=== PATIENT | female | born 1925 | race Caucasian/White ===

== ENCOUNTER 2016-09-12 08:48 | Emergency (ER) | payer MEDICARE ==
[2016-09-12] MEDS ORDERED: NS 0.9% 1000 ML* 1,000 ML IV ONE (09:58)
--- NOTE | 2016-09-12 10:42 | RAD ---
Indication: Fell and struck head. Comparison: August 13, 2015 CT. Technique: Noncontrast CT vertex of skull through foramen magnum. Report: Moderate prominence of the cerebral sulci and cerebellar fissures reflecting atrophy. Patent basal cisterns. 3 mm lacunar infarct at the interface of the LEFT thalamus and posterior limb of the internal capsule without change. Negative for ibarra matter white matter obscuration, intra or extra-axial hemorrhage, or mass effect. Unremarkable visualized orbital contents. No fracture or suspicious lesion of the calvarium or skull base. Negative for scalp hematoma. IMPRESSION: 1. No evidence for traumatic brain injury or acute intracranial process. 2. Involutional change and chronic small lacunar infarct at the LEFT thalamus internal capsule or interface.
[2016-09-12 10:56] LABS: Hematocrit 37 % (35-47); Mean Corpuscular HGB Conc 33 g/dl (31-36); Mean Corpuscular Hemoglobin 29 pg (27-31); Mean Corpuscular Volume 89 fL (80-97); Mean Platelet Volume 9 um3 (7.4-10.4); Red Blood Count 4.12 10^6/ul (4.0-5.4); Red Cell Distribution Width 13 % (10.5-15); White Blood Count 12.9 10^3/ul (3.5-10.8)
--- NOTE | 2016-09-12 10:58 | RAD ---
INDICATION: Head injury, trauma. COMPARISON: Comparison is made with a prior CT of the cervical spine from August 13, 2015. TECHNIQUE: Contiguous axial sections were obtained from the skull base through the C7 vertebra. Images were reconstructed in the sagittal and coronal planes. FINDINGS: The vertebra are in normal alignment. No prevertebral soft tissue swelling or fracture is seen. There is moderate to severe disc space narrowing and mild to moderate uncinate process spurring present at the C3-C4, C4-C5, C5-C6 and C6-C7 levels. These findings cause mild spinal canal narrowing at those levels and mild to moderate bilateral neural foraminal narrowing. IMPRESSION: 1. NO EVIDENCE FOR FRACTURE OR SUBLUXATION. 2. MODERATE TO SEVERE CERVICAL SPONDYLOSIS.
--- NOTE | 2016-09-12 11:05 | RAD ---
INDICATION: Trauma, found on the floor. COMPARISON: Comparison is made with a prior CT of the lumbar spine from August 13, 2015. TECHNIQUE: Contiguous axial sections were obtained beginning above the L1 vertebra and continuing through the L5-S1 disc space. Images were reconstructed in the sagittal and coronal planes. FINDINGS: There is a [id number] lumbar scoliosis convex toward the left side. In addition there is mild anterior subluxation of L4 relative to L5 of approximately 4 mm which is unchanged from the prior exam consistent with grade 1 anterior spondylolisthesis. No fracture is seen. At the L1-L2 level there is a xdkr-ma-emqliixm broad-based disc bulge which causes mild spinal canal narrowing and mild to moderate bilateral neural foraminal narrowing. At the L2-L3 level there is posterior endplate spurring associated with a mild broad-based disc bulge and mild hypertrophic changes within the facet joints which causes mild spinal canal narrowing and mild bilateral neural foraminal narrowing. At the L3-L4 level there is a dmrk-tq-gvjvzuwx broad-based disc bulge and moderate hypertrophic changes within the facet joints which causes moderate spinal canal narrowing and mild to moderate bilateral neural foraminal narrowing. At the L4-L5 level there is a moderate broad-based disc bulge and moderate hypertrophic changes within the facet joints which causes moderate to severe spinal canal narrowing and moderate bilateral neural foraminal narrowing. At the L5-S1 level there is a minimal broad-based disc bulge and moderate hypertrophic changes within the facet joints. No significant spinal canal narrowing is present. There is mild bilateral neural foraminal narrowing. IMPRESSION: 1. NO EVIDENCE FOR FRACTURE. 2. GRADE 1 ANTERIOR SPONDYLOLISTHESIS AT THE L4-L5 LEVEL, UNCHANGED. 3. MODERATE TO SEVERE LUMBAR SPONDYLOSIS.
--- NOTE | 2016-09-12 11:06 | RAD ---
INDICATION: Fall. Back pain COMPARISON: CT thoracic spine August 13, 2015 TECHNIQUE: Noncontrast axial source images was performed from the thoracic inlet to the level the hemidiaphragms. Coronal and and sagittal reformatted images were generated. FINDINGS: Vertebrae: There is no fracture or acute focal bony lesion. There is a remote superior plate compression deformity of T12 with minor bony retropulsion. This is not associated with canal compromise. This was evident previously. There is an old right T8 rib fracture. Alignment: There is moderate kyphosis. There is minor dextroscoliosis Central Canal: There are no significant CT abnormalities of the central canal or foramina. MR imaging is a more sensitive method to evaluate the canal and foramina. Intervertebral disc spaces: The disc spaces are maintained. Soft tissues: There are no paravertebral soft tissue abnormalities. IMPRESSION: OLD T11 AND RIGHT T8 RIB FRACTURES. NO ACUTE FINDINGS.
[2016-09-12 11:11] LABS: BUN/Creatinine Ratio 22.7 (8-20); Calcium 9.7 mg/dL (8.6-10.3); EGFR African American 77.8 (>60); EGFR Non-African American 60.5 (>60); Globulin 4.1 g/dL (2-4); Potassium 4.1 mmol/L (3.5-5.0); Total Bilirubin 0.4 mg/dL (0.2-1.0); Total Protein 8.1 g/dL (6.4-8.9)
[2016-09-12 11:23] LABS: Urine Bacteria Absent (Absent); Urine Bilirubin Negative (Negative); Urine Glucose Negative (Negative); Urine Nitrite Positive (Negative)
--- NOTE | 2016-09-12 15:43 | RAD ---
INDICATION: Right hip pain after fall COMPARISON: None TECHNIQUE: An AP supine view of the pelvis and AP views of the hip in neutral and abducted position were obtained FINDINGS: Bones: There are no acute bony findings. Joint spaces: There is moderate symmetric narrowing about both hip joint spaces. The joint spaces are preserved. SI joints/symphysis: The SI joints and symphysis are intact. Other: None IMPRESSION: MODERATE SYMMETRIC NARROWING ABOUT BOTH HIP JOINT SPACES. NO ACUTE BONY FINDINGS.
[2016-09-12 16:26] VITALS: BP 158/74
--- NOTE | 2016-09-12 18:30 | ED ---
Simba Drake Benjamin, scribed for Hunter Bond MD on 09/12/16 at 0955 . Neck Pain - HPI Summary HPI Summary: 89yo female who fell yesterday night around 11pm, unattended and unwitnessed on the floor until she was found by staff this morning. Denies head injury or LOC. Pt reports neck stiffness and back pain. Pt states that she can't sit up since the fall. Hx of TIA. - History of Current Complaint Chief Complaint: EDNeckComplaint Stated Complaint: FALL Time Seen by Provider: 09/12/16 09:30 Hx Obtained From: Patient Onset/Duration Of Injury/Symptoms: Days - 1 day ago Mechanism Of Injury: Other - fall Timing: Constant Onset/Duration: Sudden Onset, Started days ago - 1 day ago, Still Present Severity Initially: Mild Severity Currently: Mild Pain Intensity: 5 Pain Scale Used: 0-10 Numeric Location: Discrete At: - neck Character: Stiff Aggravating Factors: Movement Alleviating Factors: Nothing Associated Signs & Symptoms: Positive: Negative - Allergies/Home Medications Allergies/Adverse Reactions: Allergies Allergy/AdvReac Type Severity Reaction Status Date / Time No Known Allergies Allergy Verified 09/12/16 09:27 Home Medications: Home Medications Magnesium Hydroxide LIQ* [Milk of Magnesia LIQ*] 30 ml PO BEDTIME PRN 09/12/16 [ History Confirmed 09/12/16] Senna TAB* [Senokot TAB*] 1 tab PO DAILY PRN 09/12/16 [History Confirmed ] PMH/Surg Hx/FS Hx/Imm Hx Endocrine/Hematology History: Denies: Hx Diabetes Cardiovascular History: Reports: Hx Hypertension - TREATED WITH MEDICATION, Hx Valvular Heart Disease - Mitral valve prolapse Denies: Hx Pacemaker/ICD Sensory History: Reports: Hx Cataracts, Hx Contacts or Glasses Denies: Hx Hearing Aid Opthamlomology History: Reports: Hx Cataracts, Hx Contacts or Glasses Neurological History: Reports: Hx Transient Ischemic Attacks (TIA) Denies: Other Neuro Impairments/Disorders Psychiatric History: Reports: Hx Depression Denies: Hx Panic Disorder - Cancer History Cancer Type, Location and Year: UROTHELIAL CARCINOMA - Surgical History Surgery Procedure, Year, and Place: TONSILS. HYSTERECTOMY Infectious Disease History: No Infectious Disease History: Reports: Hx Shingles Denies: Traveled Outside the [place] in Last 30 Days - Family History Known Family History: Positive: Unknown Negative: Cardiac Disease Family History: Per EMR, both parents of old age at the age of 90 and 102. - Social History Occupation: Disabled Lives: At [facility] Alcohol Use: None Hx Substance Use: No Substance Use Type: Reports: None Hx Tobacco Use: Yes Smoking Status (MU): Former Smoker Review of Systems Constitutional: Negative Eyes: Negative ENT: Negative Cardiovascular: Negative Respiratory: Negative Gastrointestinal: Negative Genitourinary: Negative Positive: Myalgia - back pain, neck stiffness Skin: Negative Neurological: Negative Psychological: Normal All Other Systems Reviewed And Are Negative: Yes Physical Exam - Summary Physical Exam Summary: The patient is well-nourished in no acute distress and in no acute pain. The skin is warm and dry and skin color reflects adequate perfusion. No raccoons sign, no polanco signs. No signs of head trauma. HEENT: The head is normocephalic and atraumatic. The pupils are equal and reactive. The conjunctivae are clear and without drainage. Nares are patent and without drainage. Mouth reveals moist mucous membranes and the throat is without erythema and exudate. The external ears are intact. The ear canals are patent and without drainage. The tympanic membranes are intact. Neck is supple with full range of motion and non-tender. There are no carotid bruits. There is no neck vein distension. Respiratory: Chest is non-tender. Lungs are clear to auscultation and breath sounds are symmetrical and equal. Cardiovascular: Hear is regular rate and rhythm. There is no murmur or rub auscultated. There is no peripheral edema and pulses are symmetrical and equal. Abdomen: The abdomen is soft and non-tender. There are normal bowel sounds heard in all four quadrants and there is no organomegaly palpated. Musculoskeletal: There is no back pain noted. Extremities are non-tender with full range of motion. There is good capillary refill. There is no peripheral edema or calf tenderness elicited. Pt reports back pain but unable to locate. No reproducible neck pain, but pt reports neck stiffness. Negative NATHANAEL test. vesicle on left malleolus process. Neurological: Patient is alert but slightly confused.. The patient has symmetrical motor strength in all four extremities. Cranial nerves are grossly intact. Deep tendon reflexes are symmetrical and equal in all four extremities Left sided facial droop is noticed. Psychiatric: The patient has an appropriate affect and does not exhibit any anxiety or depression. Triage Information Reviewed: Yes Vital Signs On Initial Exam: Initial Vitals Temp Pulse Resp Pulse Ox 98.7 F 80 16 96 09/12/16 08:58 09/12/16 08:58 09/12/16 08:58 09/12/16 08:58 Vital Signs Reviewed: Yes Diagnostics - Vital Signs Vital Signs Temp Pulse Resp BP Pulse Ox 09/12/16 09:05 57 87 09/12/16 09:04 98.7 F 83 16 154/56 96 09/12/16 08:58 98.7 F 80 16 96 - Laboratory Lab Results: Lab Results 09/12/16 09/12/16 09/12/16 Range/Units 09:03 10:46 10:46 WBC 12.9 H (3.5-10.8) 10^3/ul RBC 4.12 (4.0-5.4) 10^6/ul Hgb 12.0 (12.0-16.0) g/dl Hct 37 (35-47) % MCV 89 (80-97) fL MCH 29 (27-31) pg MCHC 33 (31-36) g/dl RDW 13 (10.5-15) % Plt Count 341 (150-450) 10^3/ul MPV 9 (7.4-10.4) um3 Neut % (Auto) 91.6 H (38-83) % Lymph % (Auto) 4.8 L (25-47) % [place] % (Auto) 3.3 (1-9) % Eos % (Auto) 0 (0-6) % Baso % (Auto) 0.3 (0-2) % Absolute Neuts (auto) 11.8 H (1.5-7.7) 10^3/ul Absolute Lymphs (auto) 0.6 L (1.0-4.8) 10^3/ul Absolute Monos (auto) 0.4 (0-0.8) 10^3/ul Absolute Eos (auto) 0 (0-0.6) 10^3/ul Absolute Basos (auto) 0 (0-0.2) 10^3/ul Absolute Nucleated RBC 0 10^3/ul Nucleated RBC % 0 Sodium 137 (133-145) mmol/L Potassium 4.1 (3.5-5.0) mmol/L Chloride 102 (101-111) mmol/L Carbon Dioxide 27 (22-32) mmol/L Anion Gap 8 (2-11) mmol/L BUN 20 (6-24) mg/dL Creatinine 0.88 (0.51-0.95) mg/dL Est GFR ( Amer) 77.8 (>60) Est GFR (Non-Af Amer) 60.5 (>60) BUN/Creatinine Ratio 22.7 H (8-20) Glucose 130 H (70-100) mg/dL Lactic Acid (0.5-2.0) mmol/L Calcium 9.7 (8.6-10.3) mg/dL Total Bilirubin 0.40 (0.2-1.0) mg/dL AST 24 (13-39) U/L ALT 13 (7-52) U/L Alkaline Phosphatase 103 (34-104) U/L Total Creatine Kinase 560 H (10-223) U/L Total Protein 8.1 (6.4-8.9) g/dL Albumin 4.0 (3.2-5.2) g/dL Globulin 4.1 H (2-4) g/dL Albumin/Globulin Ratio 1.0 (1-3) Urine Color Yellow Urine Appearance Cloudy Urine pH 5.0 (5-9) Ur Specific [place] 1.021 (1.010-1.030) Urine Protein 2+(100 mg/dl) H (Negative) Urine Ketones Trace H (Negative) Urine Blood 3+ H (Negative) Urine Nitrate Positive H (Negative) Urine Bilirubin Negative (Negative) Urine Urobilinogen Negative (Negative) Ur Leukocyte Esterase 1+ H (Negative) Urine WBC (Auto) 2+(11-20/hpf) H (Absent) Urine RBC (Auto) 3+(>10/hpf) H (Absent) Ur Squamous Epith Cells Present H (Absent) Urine Bacteria Absent (Absent) Hyaline Casts Present H (Absent) Urine Glucose Negative (Negative) Urine Ascorbic Acid * H (Negative) 09/12/ Range/Units 10:46 WBC (3.5-10.8) 10^3/ul RBC (4.0-5.4) 10^6/ul Hgb (12.0-16.0) g/dl Hct (35-47) % MCV (80-97) fL MCH (27-31) pg MCHC (31-36) g/dl RDW (10.5-15) % Plt Count (150-450) 10^3/ul MPV (7.4-10.4) um3 Neut % (Auto) (38-83) % Lymph % (Auto) (25-47) % [place] % (Auto) (1-9) % Eos % (Auto) (0-6) % Baso % (Auto) (0-2) % Absolute Neuts (auto) (1.5-7.7) 10^3/ul Absolute Lymphs (auto) (1.0-4.8) 10^3/ul Absolute Monos (auto) (0-0.8) 10^3/ul Absolute Eos (auto) (0-0.6) 10^3/ul Absolute Basos (auto) (0-0.2) 10^3/ul Absolute Nucleated RBC 10^3/ul Nucleated RBC % Sodium (133-145) mmol/L Potassium (3.5-5.0) mmol/L Chloride (101-111) mmol/L Carbon Dioxide (22-32) mmol/L Anion Gap (2-11) mmol/L BUN (6-24) mg/dL Creatinine (0.51-0.95) mg/dL Est GFR ( Amer) (>60) Est GFR (Non-Af Amer) (>60) BUN/Creatinine Ratio (8-20) Glucose (70-100) mg/dL Lactic Acid 1.7 (0.5-2.0) mmol/L Calcium (8.6-10.3) mg/dL Total Bilirubin (0.2-1.0) mg/dL AST (13-39) U/L ALT (7-52) U/L Alkaline Phosphatase (34-104) U/L Total Creatine Kinase (10-223) U/L Total Protein (6.4-8.9) g/dL Albumin (3.2-5.2) g/dL Globulin (2-4) g/dL Albumin/Globulin Ratio (1-3) Urine Color Urine Appearance Urine pH (5-9) Ur Specific [place] (1.010-1.030) Urine Protein (Negative) Urine Ketones (Negative) Urine Blood (Negative) Urine Nitrate (Negative) Urine Bilirubin (Negative) Urine Urobilinogen (Negative) Ur Leukocyte Esterase (Negative) Urine WBC (Auto) (Absent) Urine RBC (Auto) (Absent) Ur Squamous Epith Cells (Absent) Urine Bacteria (Absent) Hyaline Casts (Absent) Urine Glucose (Negative) Urine Ascorbic Acid (Negative) Result Diagrams: 09/12/16 10:46 09/12/16 10:46 Lab Statement: Any lab studies that have been ordered have been reviewed, and results considered in the medical decision making process. - Radiology Hip XR Xray Interpretation: No Acute Changes Radiology Interpretation Completed By: Radiologist - CT CT T spine CT Interpretation: No Acute Changes - IMPRESSION: OLD T11 AND RIGHT T8 RIB FRACTURES. NO ACUTE FINDINGS. CT Interpretation Completed By: Radiologist CT L spine CT Interpretation: No Acute Changes - IMPRESSION: 1. NO EVIDENCE FOR FRACTURE. 2. GRADE 1 ANTERIOR SPONDYLOLISTHESIS AT THE L4-L5 LEVEL, UNCHANGED. 3. MODERATE TO SEVERE LUMBAR SPONDYLOSIS. CT Interpretation Completed By: Radiologist CT C spine CT Interpretation: No Acute Changes - IMPRESSION: 1. NO EVIDENCE FOR FRACTURE. 2. GRADE 1 ANTERIOR SPONDYLOLISTHESIS AT THE L4-L5 LEVEL, UNCHANGED. 3. MODERATE TO SEVERE LUMBAR SPONDYLOSIS. CT Interpretation Completed By: Radiologist CT Brain CT Interpretation: No Acute Changes - IMPRESSION: 1. No evidence for traumatic brain injury or acute intracranial process. 2. Involutional change and chronic small lacunar infarct at the LEFT thalamus internal capsule or interface. CT Interpretation Completed By: Radiologist Re-Evaluation - Re-Evaluation First Eval Re-Evaluation Time: 14:08 Comment: reviewed lab and imaging results with the pt, discussed follow up plan. Second Eval Re-Evaluation Time: 14:52 Comment: Ecchimosis behind the Right hip, but negative NATHANAEL's test. Will order Hip X-Ray Neck Course/Dx - Diagnoses Differential Dx/HQI/PQRI: Positive: Arthritis, Cervical Fracture, Intracranial Bleed, Sprain, Strain, Other - hip fracture, concussion, uti Provider Diagnoses: UTI (urinary tract infection), Concussion, Arthritis Discharge - Discharge Plan Condition: Stable Disposition: HOME Prescriptions: Ciprofloxacin TAB* [Cipro 500 MG TAB*] 500 mg PO BID #20 tab Patient Education Materials: Ciprofloxacin (By mouth), Concussion (ED), Arthritis (ED), Urinary Traction Infection in Older Adults (ED) Referrals: Christina Reyes MD [Primary Care Provider] - The documentation as recorded by the scribeSimba Benjamin accurately reflects the service I personally performed and the decisions made by me, Hunter Bond MD.
== END 2016-09-12 16:20 | disposition home or self-care (01) ==
LOC: ED 08:48
DX: N39.0 Urinary tract infection, site not specified (principal); S06.0X0A Concussion without loss of consciousness, initial encounter; M19.90 Unspecified osteoarthritis, unspecified site; W19.XXXA Unspecified fall, initial encounter; Y93.9 Activity, unspecified; Y92.9 Unspecified place or not applicable
CPT/HCPCS: 36415; 70450; 72125; 72128; 72131; 80053; 81003; 81015; 82550; 83605; 85025; 87086; 99284

== ENCOUNTER 2016-09-12 20:38 | Inpatient (IN) | payer MEDICARE ==
--- NOTE | 2016-09-12 21:18 | HP ---
H&P (Free Text) History and Physical: PCP: Em Reyes MD Date/Time of Evaluation: 09/12/2016 2105 CC: generalized weakness HPI: Mrs Prather is a pleasant 89YO female resident of [facility] evaluated in [facility] earlier today for generalized weakness and fall. Radiologic work up was negative and she was returned to [facility] where she again fell and could not get up prompting return visit to [facility]. Labs from her earlier visit were notable for WBCs 12k 91% neutrophils, & total CK of 560. She does admit to urinary urgency and frequency, but no F/C, abdominal/back pain, or other issues. PMedHx TIA CAD HTN HX bladder CA frequent UTIs Ambulatory Orders Nursing to reconcile. PARoxetine HCL TAB* [Paxil TAB*] 10 mg PO DAILY 04/15/15 Acetaminophen TAB* [Tylenol TAB*] 650 mg PO BID 05/10/15 Aspirin Low Dose CHEW TAB* [Aspirin Low Dose TAB*] 81 mg PO DAILY 05/10/15 Cholecalciferol [Vitamin D3] 50,000 unit PO MONTHLY 03/27/16 Docusate Sodium [Colace] 100 mg PO DAILY 03/27/16 Flonase NASAL SPRAY 50MCG* 1 spray INH DAILY 03/27/16 amLODIPine TAB* [Norvasc TAB*] 1.5 tab PO DAILY 03/27/16 Ciprofloxacin TAB* [Cipro 500 MG TAB*] 500 mg PO BID #20 tab 09/12/16 Magnesium Hydroxide LIQ* [Milk of Magnesia LIQ*] 30 ml PO BEDTIME PRN 09/12/16 Senna TAB* [Senokot TAB*] 1 tab PO DAILY PRN 09/12/16 Allergies No Known Allergies Allergy (Verified 09/12/16 09:27) PSurgHx SocHx: no tobacco, minimal alcohol, no recreational drugs; resides at [facility]; uses a walker for ambulation; full code status FamHx: Mother & Father passed of 'old age'. ROS: as above, otherwise reviewed and all were negative Constitutional: NAD, normally developed, well-nourished elderly white female vitals: Vital Signs Temp 38.1 C 09/12/16 21:00 Pulse 71 09/12/16 21:15 Resp 16 09/12/16 21:00 BP 134/55 09/12/16 21:15 Pulse Ox 95 09/12/16 21:15 Intake & Output 09/11/16 09/12/16 09/12/16 23:59 11:59 23:59 Weight 60.781 kg HEENM: atraumatic; sclera/conjunctiva: non-icteric/clear; hearing: clinically intact; oropharynx: clear, mucosa tacky Neck: soft tissue: non-tender; thyroid: normal Pulmonary: clear to auscultation bilaterally, good aeration, no accessory muscle use CV: RR/RR, normal S1S2, no carotid bruit, no jugular venous distention, 1+ B DP/ PT, no edema Abdominal: soft, non-distended, non-tender, no rebound/guarding/rigidity, normoactive bowel sounds, no hepatosplenomegaly or masses, no costovertebral angle tenderness Musculoskeletal: general: grossly intact; gait: unstable Integumental: L cheek scar; otherwise normal appearance and texture Psychiatric orientation: AA&O to PPS affect: pleasant mood: cooperative eye contact: good content: reliable responses: timely insight: fair Testing: reviewed from earlier ED visit ECG, personally reviewed: NSR rate 71, no ischemia CXR, personally reviewed: IMPRESSION: No active cardiopulmonary disease. XRY pelvis/2v hip: IMPRESSION: MODERATE SYMMETRIC NARROWING ABOUT BOTH HIP JOINT SPACES. NO ACUTE BONY CT T-spine: IMPRESSION: OLD T11 AND RIGHT T8 RIB FRACTURES. NO ACUTE FINDINGS. CT L-spine: IMPRESSION: 1. NO EVIDENCE FOR FRACTURE. 2. GRADE 1 ANTERIOR SPONDYLOLISTHESIS AT THE L4-L5 LEVEL, UNCHANGED. 3. MODERATE TO SEVERE LUMBAR SPONDYLOSIS. CT C-spine: IMPRESSION: 1. NO EVIDENCE FOR FRACTURE OR SUBLUXATION. 2. MODERATE TO SEVERE CERVICAL SPONDYLOSIS. CT brain WO: IMPRESSION: 1. No evidence for traumatic brain injury or acute intracranial process. 2. Involutional change and chronic small lacunar infarct at the LEFT thalamus internal capsule or interface. Impression: 89F HX CVA presents with UTI, generalized weakness, fatigue, & increased falls DIAGNOSIS & PLAN Primary UTI w/ 2nd generalized weakness/fatigue & increased falls : IV ceftriaxone : gentle IVFs : urine CX : supportive care gait abnormality : PT evaluation Secondary HX TIA : continue aspirin CAD : continue aspirin HTN : continue amlodipine once reconciled HX bladder CA : no acute issues Admission Rational: observation for UTI to initiate ABX DVTp: heparin SQ & SCDs Code Status: full HCP: daughter, Chelsie Strickland
--- NOTE | 2016-09-12 21:36 | ED ---
Mary Drake Salem, scribed for Tim Sharma MD on 09/12/16 at 2127 . Adult Trauma - HPI Summary HPI Summary: Patient is a 89 y/o female who presents to the ED per EMS s/p a fall this evening. Pt was in the ED earlier today for similar compliant. She states that she fell using her walker and reports general weakness and unsteady gait at baseline. Pt is under assisted living care currently. - History of Current Complaint Chief Complaint: EDWeakness Stated Complaint: FALL/WEAKNESS Time Seen by Provider: 09/12/16 20:57 Hx Obtained From: Patient, EMS Mechanism of Injury: Fall Ambulatory at the Scene: Yes Onset Severity: Moderate Current Severity: Moderate Pain Intensity: 0 Pain Scale Used: 0-10 Numeric Aggravating Factor(s): Nothing Alleviating Factor(s): Nothing Associated Signs & Symptoms: Positive: Negative - Additional Pertinent History Primary Care Physician: KENRICK - Allergy/Home Medications Allergies/Adverse Reactions: Allergies Allergy/AdvReac Type Severity Reaction Status Date / Time No Known Allergies Allergy Verified 09/12/16 09:27 PMH/Surg Hx/FS Hx/Imm Hx Endocrine/Hematology History: Denies: Hx Diabetes Cardiovascular History: Reports: Hx Hypertension - TREATED WITH MEDICATION, Hx Valvular Heart Disease - Mitral valve prolapse Denies: Hx Pacemaker/ICD Sensory History: Reports: Hx Cataracts, Hx Contacts or Glasses Denies: Hx Hearing Aid Opthamlomology History: Reports: Hx Cataracts, Hx Contacts or Glasses Neurological History: Reports: Hx Transient Ischemic Attacks (TIA) Denies: Other Neuro Impairments/Disorders Psychiatric History: Reports: Hx Depression Denies: Hx Panic Disorder - Cancer History Cancer Type, Location and Year: UROTHELIAL CARCINOMA - Surgical History Surgery Procedure, Year, and Place: TONSILS. HYSTERECTOMY Infectious Disease History: No Infectious Disease History: Reports: Hx Shingles Denies: Traveled Outside the [place] in Last 30 Days - Family History Known Family History: Negative: Cardiac Disease Family History: Per EMR, both parents of old age at the age of 90 and 102. - Social History Alcohol Use: None Hx Substance Use: No Substance Use Type: Reports: None Hx Tobacco Use: Yes Smoking Status (MU): Former Smoker Review of Systems Positive: Fever - Mild fever. Positive: Weakness - General. Unsteady gait. All Other Systems Reviewed And Are Negative: Yes Physical Exam Triage Information Reviewed: Yes Vital Signs On Initial Exam: Initial Vitals Temp Pulse Resp BP Pulse Ox 100.5 F 98 16 142/57 97 09/12/16 21:00 09/12/16 21:00 09/12/16 21:00 09/12/16 21:00 09/12/16 21:00 Vital Signs Reviewed: Yes Appearance: Positive: No Pain Distress, Thin Skin: Positive: Warm Head/Face: Positive: Normal Head/Face Inspection Eyes: Positive: TAMARA ENT: Positive: Hearing grossly normal Neck: Positive: Supple Respiratory/Lung Sounds: Positive: Clear to Auscultation, Breath Sounds Present Cardiovascular: Positive: RRR Abdomen Description: Positive: Nontender, Soft Bowel Sounds: Positive: Present Musculoskeletal: Positive: Strength/ROM Intact Neurological: Positive: Alert, Oriented to Person Place, Time Psychiatric: Positive: Affect/Mood Appropriate Diagnostics - Vital Signs Vital Signs Temp Pulse Resp BP Pulse Ox 09/12/16 21:15 71 134/55 95 09/12/16 21:09 72 94 09/12/16 21:00 100.5 F 98 16 142/57 97 - Laboratory Lab Statement: Any lab studies that have been ordered have been reviewed, and results considered in the medical decision making process. - Radiology CXR Radiology Interpretation Completed By: Radiologist - IMPRESSION: No active cardiopulmonary disease. - EKG 2140 EKG Interpretation: Sinus rhythm @ 71 bpm. Re-Evaluation - Re-Evaluation First Eval Comment: pt seen in ed earlier for same mild uti, unable to care for self at asisted livinf=g, fell, unable to get off of floor, will admiot Adult Trauma Course/Dx - Diagnoses Provider Diagnoses: UTI (urinary tract infection) - Physician Notifications Discussed Care Of Patient With: Dr. Moore (hospitalist) @ 2102. Will admit. Instructed by Provider To: Admit As Inpatient Discharge - Discharge Plan Condition: Fair Disposition: ADMITTED TO [facility] documentation as recorded by the Mary kauffman Salem accurately reflects the service I personally performed and the decisions made by me, Tim Sharma MD.
--- NOTE | 2016-09-12 22:00 | RAD ---
Indication: Fall, chest pain. 2 views of the chest are reviewed. There is no mediastinal shift. Heart is of normal size and configuration. When compared to previous exam of August 13, 2015 no significant change is noted. IMPRESSION: No active cardiopulmonary disease.
[2016-09-12] MEDS ORDERED: Melatonin (NF) 3 MG TAB PO PRN (23:01)
[2016-09-12] MEDS ORDERED: Ondansetron INJ* 2 MG/ML VIAL IV PRN (23:01)
[2016-09-12] MEDS ORDERED: CMCS Melatonin (NF) 3 MG TAB PO PRN (23:15)
[2016-09-12] MEDS: NS 0.9% 1000 ML* 1,000 ML IV SCH (23:28)
[2016-09-12] MEDS: cefTRIAXone VIAL(*) 1,000 MG in NS 0.9% 50 ML* 50 ML IVPB SCH (23:28)
[2016-09-13 04:46] LABS: Hematocrit 31 % (35-47); Mean Corpuscular HGB Conc 32 g/dl (31-36); Mean Corpuscular Hemoglobin 29 pg (27-31); Mean Corpuscular Volume 89 fL (80-97); Mean Platelet Volume 9 um3 (7.4-10.4); Red Cell Distribution Width 13 % (10.5-15); White Blood Count 11.3 10^3/ul (3.5-10.8)
[2016-09-13 04:58] LABS: Calcium 8.1 mg/dL (8.6-10.3); EGFR African American 82.1 (>60); EGFR Non-African American 63.8 (>60); Potassium 3.3 mmol/L (3.5-5.0)
[2016-09-13] MEDS: Heparin VIAL(*) 5000 UNITS/ML VIAL (FIVE THOUSAND) SUBCUT SCH ×3 (04:59→20:54)
[2016-09-13] MEDS: Omeprazole CAP* 20 MG PO SCH (04:59)
[2016-09-13] MEDS: Aspirin EC Low Dose* 81 MG TAB.EC PO SCH (08:21)
[2016-09-13] MEDS: Acetaminophen TAB* 325 MG PO PRN ×2 (09:20→20:54)
--- NOTE | 2016-09-13 10:32 | PN ---
Subjective Date of Service: 09/13/16 Interval History: This is an 89 yo female with h/o TIA, CAD, HTN, bladder CA and freq UTIs who presented to the ER yesterday on 2 occasions following falls. Patient first fell on Monday night and spent the night on the living room floor. She was discovered the following morning and sent the ER. She was diagnosed with a UTI and discharged home. Shortly after returning home she fell again, returning to the ER and was subsequently admitted. Patient reports that she was able to get some rest but still feels quite weak and has pain in her thighs. She doesn't recall having pain in her thighs prior to her initial fall and she states that she feels "achy all over". Denies CP, SOB, abd pain, n/v. Objective Active Medications: Acetaminophen (Tylenol Tab*) 650 mg PO Q6H PRN PRN Reason: FEVER/PAIN Last Admin: 09/13/16 09:20 Dose: 650 mg Aspirin (Aspirin Ec Low Dose*) 81 mg PO DAILY [facility] Last Admin: 09/13/16 08:21 Dose: 81 mg Heparin Sodium (Porcine) (Heparin Vial(*)) 5,000 units SUBCUT Q8HR [facility] Last Admin: 09/13/16 04:59 Dose: 5,000 units Sodium Chloride (Ns 0.9% 1000 Ml*) 1,000 mls @ 75 mls/hr IV PER RATE [facility] Last Admin: 09/12/16 23:28 Dose: 75 mls/hr Ceftriaxone Sodium 1,000 mg/ (Sodium Chloride) 50 mls @ 200 mls/hr IVPB Q24H [facility] Last Admin: 09/12/16 23:28 Dose: 200 mls/hr Melatonin (Melatonin (Nf)) 3 mg PO BEDTIME PRN; Protocol PRN Reason: Sleep Omeprazole (Prilosec Cap*) 20 mg PO DAILY@0600 [facility] Last Admin: 09/13/16 04:59 Dose: 20 mg Ondansetron HCl (Zofran Inj*) 4 mg IV Q6H PRN PRN Reason: NAUSEA Vital Signs: Temp Pulse Resp BP Pulse Ox 98.0 F 67 16 166/60 94 09/13/16 07:49 09/13/16 07:49 09/13/16 07:49 09/13/16 07:49 09/13/16 07:49 Oxygen Devices in Use Now: None Appearance: Well appearing elderly female in NAD Neck: NL Appearance and Movements; NL JVP Respiratory: Symmetrical Chest Expansion and Respiratory Effort, Clear to Auscultation Cardiovascular: NL Sounds; No Murmurs; No JVD, RRR Abdominal: NL Sounds; No Tenderness; No Distention Extremities: - - trace-1+ edema bilaterally, area of old ecchymosis over L knee , some TTP of both thighs Neurological: Alert and Oriented x 3 Result Diagrams: 09/13/16 04:18 09/13/16 04:18 Microbiology and Other Data: Microbiology 09/12/16 22:40 Nasal Screen MRSA (PCR)(CARLOS) - Final Nasal Mrsa Positive Diagnostic Imaging: CXR - NAD EKG - NSR Assess/Plan/Problems-Billing Assessment: This is an 89 yo female with CAD, HTN, prior TIA and bladder CA who presented after 2 falls at home with evidence of UTI. - Patient Problems (1) UTI (urinary tract infection) Comment: No associated sepsis Cont ceftriaxone Blood/urine cxs pending H/o freq UTIs (2) Myalgia Comment: This may just be due to her fall, but the fact that she spent several hours on the floor is concerning that her myalgias may be due to rhabdomyolysis No evidence of FARA Will add CPK to admission labs Cont IVF at this time (3) Fall Comment: Recent falls likely due to increased weakness related to her UTI Sounds that she is quite weak at baseline Requested PT eval, patient may require RHODA (4) HTN (hypertension) Comment: Normotensive Cont home medications (5) CAD (coronary artery disease) Comment: No cardiac complaints No evidence of ACS Cont med management (6) TIA (transient ischemic attack) Comment: old TIA No residual deficits but chronic weakness that is likely deconditioning (7) DVT prophylaxis Comment: SQ heparin (8) Full code status Status and Disposition: Transition to inpatient status. PT eval pending. Anticipate LOS 2-3 days, may require RHODA
--- NOTE | 2016-09-13 11:01 | PN ---
Hospitalist Progress Note CPK returned ~1000. No FARA. Plan to cont light IV hydration for mild rhabdo. Repeat CPK and BMP with tomorrow morning's labs.
--- NOTE | 2016-09-13 11:13 | RAD ---
Indication: LEFT knee pain and ecchymosis post fall. Comparison: No relevant prior exams available on the [facility] PACS for comparison. Technique: LEFT knee: Portable AP and crosstable lateral views. Report: Predominant anterior soft tissue swelling. Probable trace joint effusion. Negative for fracture or malalignment. Moderate medial joint space narrowing and mild osteophytosis. Bone density appears decreased throughout. IMPRESSION: Anterior soft tissue swelling and probable trace joint effusion. Negative for fracture.
[2016-09-13] MEDS: NS 0.9% 1000 ML* 1,000 ML IV SCH (13:34)
[2016-09-13] MEDS: cefTRIAXone VIAL(*) 1,000 MG in NS 0.9% 50 ML* 50 ML IVPB SCH (23:27)
[2016-09-14] MEDS: NS 0.9% 1000 ML* 1,000 ML IV SCH ×2 (03:28→16:49)
[2016-09-14] MEDS: Acetaminophen TAB* 325 MG PO PRN ×2 (03:45→19:18)
[2016-09-14] MEDS: Heparin VIAL(*) 5000 UNITS/ML VIAL (FIVE THOUSAND) SUBCUT SCH ×3 (05:29→22:52)
[2016-09-14] MEDS: Omeprazole CAP* 20 MG PO SCH (05:29)
[2016-09-14 06:08] LABS: Hematocrit 32 % (35-47); Hemoglobin 10.5 g/dl (12.0-16.0); Mean Corpuscular HGB Conc 33 g/dl (31-36); Mean Corpuscular Hemoglobin 30 pg (27-31); Mean Corpuscular Volume 90 fL (80-97); Mean Platelet Volume 9 um3 (7.4-10.4); Red Blood Count 3.56 10^6/ul (4.0-5.4); Red Cell Distribution Width 13 % (10.5-15)
[2016-09-14 06:20] LABS: BUN/Creatinine Ratio 14.5 (8-20); EGFR African American 83.2 (>60); EGFR Non-African American 64.7 (>60); Potassium 3.4 mmol/L (3.5-5.0)
[2016-09-14] MEDS: traMADol TAB* 50 MG PO PRN ×2 (09:04→15:06)
[2016-09-14] MEDS: Aspirin EC Low Dose* 81 MG TAB.EC PO SCH (09:05)
--- NOTE | 2016-09-14 12:27 | PN ---
Subjective Date of Service: 09/14/16 Interval History: Ms. Singh states that she continues to feel weak and tired. She also has urinary frequency but feels that it is improving. She denies other complaint including chest pain, SOB, nausea, or abdominal pain. Family History: Unchanged from Admission Social History: Unchanged from Admission Past Medical History: Unchanged from Admission Objective Active Medications: Acetaminophen (Tylenol Tab*) 650 mg PO Q6H PRN Aspirin (Aspirin Ec Low Dose*) 81 mg PO DAILY [facility] Heparin Sodium (Porcine) (Heparin Vial(*)) 5,000 units SUBCUT Q8HR [facility] Sodium Chloride (Ns 0.9% 1000 Ml*) 1,000 mls @ 75 mls/hr IV PER RATE [facility] Ceftriaxone Sodium 1,000 mg/ (Sodium Chloride) 50 mls @ 200 mls/hr IVPB Q24H [facility] Melatonin (Melatonin (Nf)) 3 mg PO BEDTIME PRN; Protocol Omeprazole (Prilosec Cap*) 20 mg PO DAILY@0600 [facility] Ondansetron HCl (Zofran Inj*) 4 mg IV Q6H PRN Tramadol HCl (Ultram*) 50 mg PO Q6H PRN Vital Signs 09/13/16 09/13/16 09/14/16 15:50 20:00 00:07 Temperature 97.8 F 98.0 F Pulse Rate 69 72 Respiratory 16 20 16 Rate Blood Pressure 141/55 152/58 (mmHg) O2 Sat by Pulse 96 93 Oximetry 09/14/16 09/14/16 09/14/16 08:00 09:04 09:06 Temperature 98.1 F Pulse Rate 69 Respiratory 18 18 18 Rate Blood Pressure 152/65 (mmHg) O2 Sat by Pulse 93 Oximetry 09/14/16 11:04 Temperature Pulse Rate Respiratory 18 Rate Blood Pressure (mmHg) O2 Sat by Pulse Oximetry Oxygen Devices in Use Now: None Appearance: Elderly female sitting up in bed in NAD Eyes: No Scleral Icterus Ears/Nose/Mouth/Throat: Mucous Membranes Moist Neck: Trachea Midline Respiratory: Symmetrical Chest Expansion and Respiratory Effort, Clear to Auscultation Cardiovascular: NL Sounds; No Murmurs; No JVD, No Edema Abdominal: NL Sounds; No Tenderness; No Distention Extremities: No Edema Skin: - - Ecchymosis to left knee, abrasion to left cheek Neurological: Alert and Oriented x 3, NL Muscle Strength and Tone Nutrition: Taking PO's Result Diagrams: 09/14/16 05:28 09/14/16 05:28 Microbiology and Other Data: Microbiology 09/12/16 22:40 Nasal Screen MRSA (PCR)(CARLOS) - Final Nasal Mrsa Positive Diagnostic Imaging: CXR - NAD EKG - NSR Assess/Plan/Problems-Billing Assessment: This is an 89 yo female with CAD, HTN, prior TIA and bladder CA who presented after 2 falls at home with evidence of UTI. - Patient Problems (1) Fall Comment: Recent falls likely due to increased weakness related to her UTI. However, she is quite weak at baseline as well and will need rehab. PT following. (2) UTI (urinary tract infection) Comment: No associated sepsis. Urine culture negative but UA strongly positive and patient has frequent history of UTIs and complained of new urinary frequency. Cont ceftriaxone. (3) Rhabdomyolysis Comment: Mild. CK peaked at 973. (4) HTN (hypertension) Comment: SBP 150-160s. Cont amlodipine. (5) CAD (coronary artery disease) Comment: No cardiac complaints. Cont med management (6) Full code status (7) DVT prophylaxis Comment: SQ heparin Status and Disposition: Inpatient. Will need RHODA vs NH placement.
[2016-09-14] MEDS: cefTRIAXone VIAL(*) 1,000 MG in NS 0.9% 50 ML* 50 ML IVPB SCH (22:52)
[2016-09-15] MEDS: NS 0.9% 1000 ML* 1,000 ML IV SCH ×2 (05:58→18:49)
[2016-09-15] MEDS: Heparin VIAL(*) 5000 UNITS/ML VIAL (FIVE THOUSAND) SUBCUT SCH ×3 (05:59→21:53)
[2016-09-15] MEDS: Omeprazole CAP* 20 MG PO SCH (05:59)
[2016-09-15] MEDS: traMADol TAB* 50 MG PO PRN (06:14)
[2016-09-15] MEDS: amLODIPine TAB* 5 MG PO SCH (09:01)
[2016-09-15] MEDS: Acetaminophen TAB* 325 MG PO PRN (09:01)
[2016-09-15] MEDS: Aspirin EC Low Dose* 81 MG TAB.EC PO SCH (09:02)
[2016-09-15] MEDS ORDERED: Senna TAB PO PRN (15:38)
[2016-09-15] MEDS ORDERED: Polyethylene Glycol 3350* 17 GM PACKET PO PRN (15:39)
[2016-09-15] MEDS ORDERED: Docusate CAP* 100 MG PO PRN (15:39)
--- NOTE | 2016-09-15 18:37 | PN ---
Subjective Date of Service: 09/15/16 Interval History: Ms. Singh reported some nausea with dry heaves today but denies other complaint and is feeling well now. She specifically denies chest pain, SOB, nausea, or abdominal pain. Family History: Unchanged from Admission Social History: Unchanged from Admission Past Medical History: Unchanged from Admission Objective Active Medications: Acetaminophen (Tylenol Tab*) 650 mg PO Q6H PRN Amlodipine Besylate (Norvasc Tab*) 2.5 mg PO DAILY [facility] Aspirin (Aspirin Ec Low Dose*) 81 mg PO DAILY [facility] Docusate Sodium (Colace Cap*) 100 mg PO DAILY PRN Heparin Sodium (Porcine) (Heparin Vial(*)) 5,000 units SUBCUT Q8HR [facility] Sodium Chloride (Ns 0.9% 1000 Ml*) 1,000 mls @ 75 mls/hr IV PER RATE [facility] Ceftriaxone Sodium 1,000 mg/ (Sodium Chloride) 50 mls @ 200 mls/hr IVPB Q24H [facility] Melatonin (Melatonin (Nf)) 3 mg PO BEDTIME PRN; Protocol Omeprazole (Prilosec Cap*) 20 mg PO DAILY@0600 [facility] Ondansetron HCl (Zofran Inj*) 4 mg IV Q6H PRN Polyethylene Glycol/Electrolytes (Miralax*) 17 gm PO DAILY PRN Senna (Senokot Tab*) 1 tab PO BEDTIME PRN Tramadol HCl (Ultram*) 50 mg PO Q6H PRN Vital Signs 09/14/16 09/14/16 09/15/16 19:30 23:21 03:43 Temperature 98.2 F Pulse Rate 79 92 Respiratory 18 16 16 Rate Blood Pressure 159/70 167/64 (mmHg) O2 Sat by Pulse 95 96 Oximetry 09/15/16 09/15/16 09/15/16 06:14 07:35 08:00 Temperature 98.6 F Pulse Rate 82 Respiratory 16 16 16 Rate Blood Pressure 158/72 (mmHg) O2 Sat by Pulse 94 Oximetry 09/15/16 09/15/16 08:14 15:34 Temperature 98.1 F Pulse Rate 78 Respiratory 16 24 Rate Blood Pressure 161/74 (mmHg) O2 Sat by Pulse 95 Oximetry Oxygen Devices in Use Now: None Appearance: Elderly female sitting up in bed in NAD Eyes: No Scleral Icterus Ears/Nose/Mouth/Throat: Mucous Membranes Moist Neck: Trachea Midline Respiratory: Clear to Auscultation, Clear to Percussion Cardiovascular: NL Sounds; No Murmurs; No JVD, No Edema Abdominal: NL Sounds; No Tenderness; No Distention Lymphatic: No Cervical Adenopathy Extremities: No Edema Skin: - - abrasion to left temporal region, and left knee Neurological: Alert and Oriented x 3, NL Muscle Strength and Tone Nutrition: Taking PO's Result Diagrams: 09/14/16 05:28 09/14/16 05:28 Microbiology and Other Data: Microbiology 09/12/16 22:40 Nasal Screen MRSA (PCR)(CARLOS) - Final Nasal Mrsa Positive Diagnostic Imaging: CXR - NAD EKG - NSR Assess/Plan/Problems-Billing Assessment: This is an 89 yo female with CAD, HTN, prior TIA and bladder CA who presented after 2 falls at home with evidence of UTI. - Patient Problems (1) Fall Comment: Recent falls likely due to increased weakness related to her UTI. However, she is quite weak at baseline as well and will need rehab. PT following. (2) UTI (urinary tract infection) Comment: No associated sepsis. Urine culture negative but UA strongly positive and patient has frequent history of UTIs and complained of new urinary frequency. Cont ceftriaxone. (3) Rhabdomyolysis Comment: Mild. CK peaked at 973. (4) HTN (hypertension) Comment: SBP 150-160s. Cont amlodipine. (5) CAD (coronary artery disease) Comment: No cardiac complaints. Cont med management (6) Full code status (7) DVT prophylaxis Comment: SQ heparin Status and Disposition: Inpatient. Will need RHODA vs NH placement.
[2016-09-15] MEDS: cefTRIAXone VIAL(*) 1,000 MG in NS 0.9% 50 ML* 50 ML IVPB SCH (21:59)
[2016-09-16] MEDS: Omeprazole CAP* 20 MG PO SCH (06:14)
[2016-09-16] MEDS: Heparin VIAL(*) 5000 UNITS/ML VIAL (FIVE THOUSAND) SUBCUT SCH ×3 (06:14→14:23)
[2016-09-16] MEDS: NS 0.9% 1000 ML* 1,000 ML IV SCH (06:16)
[2016-09-16] MEDS: Acetaminophen TAB* 325 MG PO PRN (06:16)
[2016-09-16] MEDS: amLODIPine TAB* 5 MG PO SCH (09:13)
[2016-09-16] MEDS: Aspirin EC Low Dose* 81 MG TAB.EC PO SCH (09:14)
--- NOTE | 2016-09-16 09:21 | PN ---
Subjective Date of Service: 09/16/16 Interval History: Ms. Singh denies complaint today. However, nursing staff have reported that she has developed hematuria overnight. Ms Singh reports urinary frequency but denies dysuria. She further denies chest pain, SOB, nasuea, or abdominal pain. Family History: Unchanged from Admission Social History: Unchanged from Admission Past Medical History: Unchanged from Admission Objective Active Medications: Acetaminophen (Tylenol Tab*) 650 mg PO Q6H PRN Amlodipine Besylate (Norvasc Tab*) 2.5 mg PO DAILY [facility] Aspirin (Aspirin Ec Low Dose*) 81 mg PO DAILY [facility] Docusate Sodium (Colace Cap*) 100 mg PO DAILY PRN Heparin Sodium (Porcine) (Heparin Vial(*)) 5,000 units SUBCUT Q8HR [facility] Ceftriaxone Sodium 1,000 mg/ (Sodium Chloride) 50 mls @ 200 mls/hr IVPB Q24H [facility] Melatonin (Melatonin (Nf)) 3 mg PO BEDTIME PRN; Protocol Omeprazole (Prilosec Cap*) 20 mg PO DAILY@0600 [facility] Ondansetron HCl (Zofran Inj*) 4 mg IV Q6H PRN Polyethylene Glycol/Electrolytes (Miralax*) 17 gm PO DAILY PRN Senna (Senokot Tab*) 1 tab PO BEDTIME PRN Tramadol HCl (Ultram*) 50 mg PO Q6H PRN Vital Signs 09/15/16 09/15/16 09/15/16 15:34 19:48 20:00 Temperature 98.1 F 98.4 F Pulse Rate 78 84 Respiratory 24 24 17 Rate Blood Pressure 161/74 138/52 (mmHg) O2 Sat by Pulse 95 94 Oximetry 09/15/16 09/16/16 09/16/16 23:25 03:20 03:30 Temperature 98.6 F 98.3 F Pulse Rate 83 84 Respiratory 18 16 Rate Blood Pressure 141/61 148/59 (mmHg) O2 Sat by Pulse 88 88 94 Oximetry 09/16/16 09/16/16 09/16/16 03:31 07:25 08:00 Temperature 98.2 F Pulse Rate 82 76 Respiratory 16 Rate Blood Pressure 133/50 (mmHg) O2 Sat by Pulse 94 93 93 Oximetry Oxygen Devices in Use Now: None Appearance: Elderly female sitting up in bed in NAD Eyes: No Scleral Icterus Ears/Nose/Mouth/Throat: Mucous Membranes Moist Respiratory: Symmetrical Chest Expansion and Respiratory Effort, Clear to Auscultation Cardiovascular: NL Sounds; No Murmurs; No JVD, No Edema Abdominal: NL Sounds; No Tenderness; No Distention Extremities: No Edema Skin: - - Abrasion to left cheek, bruise to left knee Neurological: Alert and Oriented x 3, NL Muscle Strength and Tone Nutrition: Taking PO's Result Diagrams: 09/14/16 05:28 09/14/16 05:28 Microbiology and Other Data: Microbiology 09/12/16 22:40 Nasal Screen MRSA (PCR)(CARLOS) - Final Nasal Mrsa Positive Diagnostic Imaging: CXR - NAD EKG - NSR Assess/Plan/Problems-Billing Assessment: This is an 89 yo female with CAD, HTN, prior TIA and bladder CA who presented after 2 falls at home with evidence of UTI. - Patient Problems (1) Fall Comment: Recent falls likely due to increased weakness related to her UTI. However, she is quite weak at baseline as well and will need rehab. PT following. (2) UTI (urinary tract infection) Comment: Now with hematuria, UA pending. Urine culture negative on admission but UA had been strongly positive and patient has frequent history of UTIs and complained of new urinary frequency. Cont ceftriaxone, await results of UA. Patient does have a history of bladder cancer which is concerning, will consult with urology. (3) Rhabdomyolysis Comment: Resolved. CK peaked at 973. (4) HTN (hypertension) Comment: SBP 150-160s. Cont amlodipine. (5) CAD (coronary artery disease) Comment: No cardiac complaints. Cont med management (6) Full code status (7) DVT prophylaxis Comment: SQ heparin Status and Disposition: Inpatient. Will need RHODA vs NH placement.
[2016-09-16 11:39] VITALS: BP 125/47
[2016-09-16 12:26] LABS: Urine Bacteria Absent (Absent); Urine Bilirubin Negative (Negative); Urine Glucose Negative (Negative); Urine Nitrite Negative (Negative)
--- NOTE | 2016-09-16 13:43 | RAD ---
INDICATION: Hematuria COMPARISON: CT urogram March 15, 2010 TECHNIQUE: Noncontrast axial source images were acquired from the level hemidiaphragms to the symphysis pubis as part of CT imaging for renal stone. Lung bases: There is minor airspace disease left lung base which is likely related atelectasis. There is a small left-sided effusion. Liver: The liver is normal in size. Noncontrast imaging shows no evidence of a hepatic mass or ductal dilatation. Gallbladder: There are no calcified gallstones. There is subtle radiodensity in the dependent portion of the gallbladder which may represent scant gallbladder sludge and/or gravel. There is no evidence of wall thickening or pericholecystic fluid.. Spleen: The spleen is normal in size. The noncontrast CT appearance is normal. Pancreas: Noncontrast imaging shows no pancreatic mass or ductal dilitation. Adrenal glands: There may be a tiny adrenal adenoma measuring 0.6 cm. The appearance is unchanged. The left adrenal gland is normal.. Kidneys/Bladder: There is no evidence of nephrolithiasis or CT evidence of hydronephrosis. Noncontrast imaging shows no evidence of a renal mass. The right kidney is atrophic. The left kidney is mildly diminutive in size. The bladder is unremarkable.. Adenopathy: There is no evidence of intraperitoneal or retroperitoneal adenopathy. Evaluation is limited without oral contrast. Fluid collections: There are no free or localized fluid collections. Vessels: The aorta and iliac vessels are normal in caliber. There are no significant atherosclerotic changes. The IVC appears normal Pelvic organs: There is hysterectomy. There is no adnexal mass there is postoperative change in left adnexa. GI tract: Evaluation of the bowel is limited without oral contrast. The stomach, small bowel appear unremarkable. There are moderate diverticula of the sigmoid colon. There is no CT evidence of acute diverticulitis. There are no obstructive findings. Soft tissues: No soft tissue abnormalities of the extraperitoneal abdomen or pelvis are identified. Osseous structures: There are no acute osseous findings. IMPRESSION: 1. Airspace disease left lung base with a small left-sided effusion 2. Probable tiny right adrenal adenoma, unchanged. 3. Atrophic right kidney. No evidence of nephrolithiasis. No identifiable mass on noncontrast imaging. 4. Hysterectomy. 5. Scattered diverticula of the sigmoid colon
--- NOTE | 2016-09-16 15:53 | DS ---
HOSPITAL MEDICINE HISTORY AND PHYSICAL: DATE OF ADMISSION: 09/02/16 DATE OF DISCHARGE: 09/16/16 PRIMARY CARE PHYSICIAN: Dr. Reyes ATTENDING PHYSICIAN: Dr. Michael Calderón* (dictation provided by Radha Wills NP ). PRIMARY DIAGNOSES: 1. Suspected urinary tract infection. 2. Hematuria. SECONDARY DIAGNOSES: 1. History of transient ischemic attack. 2. Coronary artery disease. 3. Hypertension. 4. History of bladder cancer. 5. Frequent urinary tract infections. MEDICATIONS AT THE TIME OF DISCHARGE: 1. Paxil 10 mg p.o. daily. 2. Tylenol p.r.n. 3. Hold aspirin. 4. Cholecalciferol 50,000 units p.o. monthly. 5. Docusate 100 mg p.o. daily. 6. Flonase nasal spray one spray inhaled daily. 7. Amlodipine 7.5 mg p.o. daily. 8. Magnesium hydroxide 30 mL p.o. at bedtime p.r.n. 9. Senna one tablet p.o. daily p.r.n. HOSPITAL COURSE: Ms. Prather is an 89-year-old female with a past medical history of bladder cancer, frequent urinary tract infections, TIA, coronary artery disease and hypertension, who presented to the hospital on 09/12/16 with concerns for generalized weakness. Please see the dictated H and P from Dr. Hakan Moore for complete details. In brief, the patient had falls and generalized weakness prompting a visit to the emergency room where she was found to have concern of urinary urgency and frequency and concern for positive UA with positive nitrites and leukocyte esterase. Ms. Prather was admitted to the hospital and treatment for urinary tract infection. She had good resolution of her slight elevation in her white blood cell count of 11.3 down to 10. Her electrolytes have remained stable. She had a slight rhabdomyolysis at admission with a CK of 973, but it was 480 on followup. Creatinine remained stable. She had urine culture from 09/12/16, which showed no growth clinically significant organisms. However, she had report of urgency and frequency, which seemed to improve with ceftriaxone. On the day of planned discharge to [place], Ms. Prather's nurse noted that the patient was having hematuria. Urinalysis revealed that there was 3+ blood, but no evidence of leuk esterase or nitrites. The patient does have a history of bladder cancer. I reviewed the case with her urologist, Dr. Doyle, and he recommended that the patient have an abdomen and pelvis CT, which she did have and it showed the following: "Air space disease, left lung base, with a small left-sided effusion, probable right adrenal adenoma unchanged, atrophic right kidney, no evidence of nephrolithiasis, no identifiable mass on noncontrast imaging. Hysterectomy, scattered diverticula of the sigmoid colon." Dr. Doyle further recommended that the patient follow up with him and that has been arranged. Ms. Prather is medically stable for discharge to home. I do see that the CT showed a small infiltrate, but she has no shortness of breath, no leukocytosis, and no fever. She can be monitored appropriately at the shelter. DISPOSITION: To [place]. DIET: Regular. ACTIVITY: As tolerated. FOLLOW-UP PLANS: Please follow up with Dr. Doyle regarding hematuria on 09/23/16, at 10 a.m. TIME SPENT: Approximately 60 minutes was spent in the discharge of this patient , more than half that time was spent with the patient at the bedside reviewing the events leading up this hospitalization, performing the physical examination , and reviewing the plan of care. RADHA WILLS NP CC: Dr. Reyes* [id number]/CPS #: [id number] MTDD
== END 2016-09-16 14:55 | DRG 690 ==
LOC: ED 20:38 → MED 21:04 → OBSVTOIN 09-13 10:24
PROVIDERS: ADMIT Hospitalist; ATTEND Internal Medicine
DX: N39.0 Urinary tract infection, site not specified (principal); J90 Pleural effusion, not elsewhere classified; M62.82 Rhabdomyolysis; I34.1 Nonrheumatic mitral (valve) prolapse; R31.9 Hematuria, unspecified; I25.10 Atherosclerotic heart disease of native coronary artery without angina pectoris; I10 Essential (primary) hypertension; R29.6 Repeated falls; W18.30XA Fall on same level, unspecified, initial encounter; R26.9 Unspecified abnormalities of gait and mobility; H26.9 Unspecified cataract; F32.9 Major depressive disorder, single episode, unspecified; R53.1 Weakness; K57.30 Diverticulosis of large intestine without perforation or abscess without bleeding; D35.01 Benign neoplasm of right adrenal gland; Z86.73 Personal history of transient ischemic attack (TIA), and cerebral infarction without residual deficits; Z90.710 Acquired absence of both cervix and uterus; Z87.891 Personal history of nicotine dependence; Z85.51 Personal history of malignant neoplasm of bladder; Z87.440 Personal history of urinary (tract) infections; Z72.89 Other problems related to lifestyle; Y92.129 Unspecified place in nursing home as the place of occurrence of the external cause
CPT/HCPCS: 36415; 70450; 71020; 72125; 72128; 72131; 74176; 80048; 80053; 81003; 81015; 82550; 83605; 85025; 87040; 87086; 87641; 93005; 99284; A9270-GY; G0378; J0696; J1644; J2405